=== PATIENT | female | born 1995 | race Hispanic/Latino ===

== ENCOUNTER 2019-02-07 15:16 | Emergency (ER) | payer SELFPAY ==
[~2019-02-07] VITALS: Ht 167.6 cm; Wt 113.4 kg
--- OUTSIDE RECORDS SUMMARY | 2019-02-07 15:19 | XMS REPORT ---
Author Author [facility] Address Unknown Phone Unavailable Care Team Providers Care Statistical Modeler Name Role Phone Unavailable Unavailable Payers Payer Name Policy Type Policy Number Effective Date Expiration Date Problems This patient has no known problems. Allergies, Adverse Reactions, Alerts Allergy Name Allergy Type Status Severity Reaction(s) Onset Date Inactive Date Treating Clinician Comments Penicillins DA Active [place] 2015-04-11 00:00:00 Medications This patient has no known medications.
[2019-02-07] MEDS ORDERED: SODIUM CHLORIDE 0.9% 1000ML 1,000 ML IV SCH (15:45)
[2019-02-07] MEDS ORDERED: ALPRAZOLAM 0.5 MG TAB PO ONE (16:30)
[2019-02-07] MEDS ORDERED: LORAZEPAM INJ 2 MG/ML VIAL IV ONE (16:30)
--- NOTE | 2019-02-07 16:57 | Diagnostic Imaging Report ---
ADDENDUM #1 Agree with preliminary report. Signed by: DR Felipe Chang M.D. on 02/07/2019 6:37 PM ORIGINAL REPORT Exam: Noncontrast Head CT History: 23-year-old female with numbness in both arms Comparison studies: None Technique: Axial images were obtained from the skull base to the vertex. Coronal and sagittal reconstructions obtained from the axial data. Dose modulation, iterative reconstruction, and/or weight based adjustment of the mA/kV was utilized to reduce the radiation dose to as low as reasonably achievable. Findings: Scalp/skull: No abnormalities. No fractures, blastic or lytic lesions. Extra-axial spaces: No masses. No fluid collections. Brain sulci: Appropriate for age. Ventricles: Normal in size and configuration. No hydrocephalus. Parenchyma: No abnormal densities. No masses, hemorrhage, acute or chronic cortical vascular insults. Sellar/suprasellar region: No abnormalities Craniocervical junction: Patent foramen magnum. No Chiari one malformation. IMPRESSION: No acute abnormalities. Report dictated by neuroradiology fellow. Final read to follow. Signed by: Raymond Brice MD on 02/07/2019 4:53 PM
[2019-02-07] MEDS ORDERED: HYDROXYZINE HCL25 MG PO (17:08)
== END 2019-02-07 17:10 | disposition home or self-care (01) ==
LOC: FSED 15:16
DX: R20.2 Paresthesia of skin (principal); I10 Essential (primary) hypertension
CPT/HCPCS: 70450; 80053; 80307; 81003; 81025; 84484; 85025; 93005; 99284; J2060; J7030

== ENCOUNTER 2019-09-20 23:34 | Emergency (ER) | payer SELFPAY ==
[~2019-09-20] VITALS: Ht 165.1 cm; Wt 122.5 kg
[~2019-09-20 23:34] MED LIST: HYDROXYZINE HCL25 MG PO
== END 2019-09-21 00:09 | disposition home or self-care (01) ==
LOC: FSED 23:34
DX: S39.012A Strain of muscle, fascia and tendon of lower back, initial encounter (principal)
CPT/HCPCS: 99282

== ENCOUNTER 2021-01-11 08:48 | Emergency (ER) | payer OTHER ==
[~2021-01-11] VITALS: Ht 165.1 cm; Wt 120.2 kg
[2021-01-11] MEDS ORDERED: CYCLOBENZAPRINE5 MG PO (09:42)
== END 2021-01-11 10:00 | disposition home or self-care (01) ==
LOC: FSED 09:45
DX: M25.511 Pain in right shoulder (principal); M54.9 Dorsalgia, unspecified
CPT/HCPCS: 99282

== ENCOUNTER 2022-02-11 13:29 | Emergency (ER) | payer OTHER ==
[~2022-02-11] VITALS: Ht 165.1 cm; Wt 120.2 kg
[~2022-02-11 13:29] MED LIST changes: +CYCLOBENZAPRINE5 MG PO
[2022-02-11] MEDS ORDERED: SODIUM CHLORIDE 0.9% 1000ML 1,000 ML IV STA (14:01)
[2022-02-11] MEDS ORDERED: MECLIZINE HCL 12.5 MG TAB PO ONE (14:15)
[2022-02-11 14:19] LABS: BASOPHILS # (AUTO) 0.1 (0.0-0.1); BASOPHILS % 0.9 % (0.0-1.0); EOSINOPHILS # (AUTO) 0.2 (0.0-0.4); EOSINOPHILS % 2.7 % (0.0-6.0); HEMATOCRIT 39.6 % (34.2-44.1); HEMOGLOBIN 12.7 g/dL (12.0-16.0); LYMPHOCYTES % 24.5 % (18.0-39.1); MEAN CORPUSCULAR HEMOGLOBIN 28.6 pg (28-32); MEAN CORPUSCULAR HGB CONC 32.1 g/dL (31-35); MEAN CORPUSCULAR VOLUME 89.2 fL (81-99); MONOCYTES # (AUTO) 0.5 (0.2-0.8); MONOCYTES % 6.7 % (4.4-11.3); NEUTROPHILS # (AUTO) 5.2 (2.1-6.9); NEUTROPHILS % 64.8 % (38.7-80.0); PLATELET COUNT 363 x10e3/uL (140-360); RED BLOOD COUNT 4.44 x10e6/uL (3.6-5.1); RED CELL DISTRIBUTION WIDTH 13.2 % (11.7-14.4)
[2022-02-11 14:26] LABS: INR 0.91; PROTHROMBIN TIME 13.1 seconds (11.9-14.5)
[2022-02-11 14:28] LABS: CLARITY,URINE SL CLOUDY (CLEAR); COLOR,URINE AMBER (YELLOW); KETONES,URINE NEGATIVE (NEGATIVE); LEUKOCYTE ESTERASE ,URINE NEGATIVE (NEGATIVE); NITRITE,URINE NEGATIVE (NEGATIVE); PROTEIN,URINE DIPSTICK NEGATIVE (NEGATIVE); URINE UROBILINOGEN 0.2 mg/dL (0.2 - 1)
[2022-02-11 14:30] LABS: PARTIAL THROMBOPLASTIN TIME 23.4 seconds (23.8-35.5)
[2022-02-11 14:35] LABS: ALANINE AMINOTRANSFERASE 21 IU/L (0-55); ALBUMIN 3.5 g/dL (3.5-5.0); ALBUMIN/GLOBULIN RATIO 0.9 (0.8-2.0); ALKALINE PHOSPHATASE 55 IU/L (40-150); ANION GAP 12.7 mmol/L (8-16); BLOOD UREA NITROGEN 7 mg/dL (7-26); BUN/CREATININE RATIO 11 (6-25); CALCIUM 8.5 mg/dL (8.4-10.2); CARBON DIOXIDE 22 mmol/L (22-29); CHLORIDE 107 mmol/L (98-107); CREATINE KINASE 124 IU/L (29-168); CREATININE, SERUM 0.66 mg/dL (0.57-1.11); EST GLOMERULAR FILTRATION RATE 107 ML/MIN (60-); GLUCOSE 95 mg/dL (74-118); MAGNESIUM 1.6 MG/DL (1.3-2.1); POTASSIUM 3.7 mmol/L (3.5-5.1); SODIUM 138 mmol/L (136-145)
[2022-02-11 14:37] LABS: RBC,URINE >50 /HPF (0-5); WBC,URINE (MAN) 0-5 /HPF (0-5)
[2022-02-11 14:38] LABS: BACTERIA,URINE RARE /HPF; EPITHELIAL CELLS,URINE FEW /LPF
[2022-02-11 14:54] LABS: THYROID STIMULATING HORMONE 1.356 uIU/mL (0.350-4.940)
== END 2022-02-11 16:29 | disposition home or self-care (01) ==
LOC: ER 13:35
DX: R00.2 Palpitations (principal); R42 Dizziness and giddiness
CPT/HCPCS: 36415; 71045; 80053; 81001; 81025; 82550; 82553; 83735; 84443; 84484; 85025; 85379; 85610; 85730; 87086; 93005; 99283; J7030; J8597

== ENCOUNTER 2022-04-09 13:11 | Emergency (ER) | payer OTHER ==
[~2022-04-09] VITALS: Ht 162.6 cm; Wt 124.1 kg
[2022-04-09] MEDS ORDERED: NEURONTIN300 MG PO (13:35)
== END 2022-04-09 14:27 | disposition home or self-care (01) ==
LOC: FSED 13:23
DX: G62.9 Polyneuropathy, unspecified (principal); R42 Dizziness and giddiness; Z88.0 Allergy status to penicillin
CPT/HCPCS: 70450; 72125; 81003; 81025; 99283